=== PATIENT | female | born 1980 | race Caucasian/White ===

== ENCOUNTER 2017-05-29 16:28 | Emergency (ER) | payer OTHER ==
[~2017-05-29] VITALS: Ht 160 cm; Wt 78.1 kg
--- NOTE | 2017-05-29 16:50 | NUR ---
DIONTE AMBULATED TO [facility]
[2017-05-29 16:51] VITALS: BP 129/87
--- NOTE | 2017-05-29 16:55 | NUR ---
36F BIB SELF C/O VAGINAL ITCHING AND SWELLING X 3 WEEKS; PT STATES WAS DX WITH CHLAMYDIA BY OUTSIDE LAB ON 05/16/17, TREATED WITH METRONIDAZOLE, BUT CONTINUES TO HAVE IRRITATION; PT STATES WAS INSTRUCTED TO SEE PCP FOR MEDICATION, BUT UNABLE TO GET APPOINTMENT FOR WEEKS. PT STATES NO VAGINAL BLEEDING, NO VAGINAL DISCHARGE, NO ODOR, AND NO URINARY PAIN, RETENTION, OR BURNING AT THIS TIME; PT AA&OX4 WITH EVEN AND STEADY GAIT; PT STATES NO PAIN, NO N/V/D AT THIS TIME; BL LUNG SOUNDS CLEAR, RR EVEN/UNLABORED; PT RESTING IN OF, POSITIONED FOR COMFORT; ER MD MADE AWARE OF STATUS. WILL CONTINUE TO MONITOR.
[2017-05-29 17:30] VITALS: BP 126/84
--- NOTE | 2017-05-29 17:30 | NUR ---
Patient discharged with v/s stable. Written and verbal after care instructions given and explained. Patient alert, oriented and verbalized understanding of instructions. Ambulatory with steady gait. All questions addressed prior to discharge. ID band removed. Patient advised to follow up with PMD. Rx of ZOFRAN ODT 4MG & AZITHROMYCIN 500MG TAB given. Patient educated on indication of medication including possible reaction and side effects. Opportunity to ask questions provided and answered.
== END 2017-05-29 17:30 | disposition home or self-care (01) ==
LOC: MED 16:28
DX: A74.9 Chlamydial infection, unspecified (principal); Z88.1 Allergy status to other antibiotic agents; Z88.5 Allergy status to narcotic agent
CPT/HCPCS: 99283

== ENCOUNTER 2017-06-16 19:24 | Emergency (ER) | payer OTHER ==
[~2017-06-16] VITALS: Ht 160 cm; Wt 77.1 kg
[2017-06-16 19:31] VITALS: BP 133/81
--- NOTE | 2017-06-16 19:36 | NUR ---
PT TAKEN TO BED 10
--- NOTE | 2017-06-16 19:40 | NUR ---
36/F CAME IN W C/O 11/16 SUPRAPUBIC PAIN, ACUTE ONSET X 2 DAYS. PT REPORTS CLEAR VAGINAL DISCHARGE, NO ODOR REPORTED. PT REPORTS HX OF CHLAMYDIA X 2 WEEKS AGO AND WAS TREATED, STATES " I FINISHED ALL OF IT". DENIES HEMATURIA/DYURIA, DENIES FEVER/CHILLS, N/V/D. DENIES OTHER PMH/RX/OTC
[2017-06-16] MEDS ORDERED: LORATADINE 10 MG TAB PO ONE (21:15)
[2017-06-16] MEDS ORDERED: methylPREDNISolone SS 125 MG in WATER STERILE 2 ML IM ONE (21:15)
[2017-06-16] MEDS ORDERED: AZITHROMYCIN 250 MG TAB PO ONE (21:15)
[2017-06-16] MEDS ORDERED: cefTRIAXone 250 MG in LIDOCAINE MPF 1% - **ER/OR** 0.9 ML IM ONE (21:15)
[2017-06-16] MEDS ORDERED: methylPREDNISolone SS 125 MG/2 ML VIAL ONE (21:24)
--- NOTE | 2017-06-16 21:50 | NUR ---
Patient discharged with v/s stable. Written and verbal after care instructions given and explained. Patient verbalized understanding. Ambulatory with steady gait. All questions addressed prior to discharge. Advised to follow up with PMD.
[2017-06-16 21:56] VITALS: BP 127/88
[2017-06-16 22:32] LABS: APPEARANCE,URINE CLEAR (CLEAR); BILIRUBIN,URINE NEGATIVE (NEGATIVE); BLOOD, URINE TRACE-I (NEGATIVE); COLOR,URINE YELLOW (YELLOW); LEUKOCYTE ESTERASE ,URINE NEGATIVE (NEGATIVE); NITRITE, URINE NEGATIVE (NEGATIVE); PH,URINE 7.5 (5.0-9.0); UGLUCOSE NEGATIVE (NEGATIVE)
[2017-06-16 22:52] LABS: RBC,URINE 0-5 (RARE) /HPF (0-5); WBC,URINE 0-5 (RARE) /HPF (0-5)
[2017-06-19 09:13] LABS: CHLAMYDIA TRACHOMATIS AMP DNA Negative (Negative)
== END 2017-06-16 21:50 | disposition home or self-care (01) ==
LOC: MED 19:24
DX: N34.2 Other urethritis (principal); F41.9 Anxiety disorder, unspecified; Z88.1 Allergy status to other antibiotic agents; Z88.5 Allergy status to narcotic agent
CPT/HCPCS: 36415; 81001; 81025; 96372; 99284; J0696; J2001; J2930; 87491

== ENCOUNTER 2017-07-03 19:11 | Emergency (ER) | payer OTHER ==
[~2017-07-03] VITALS: Ht 160 cm; Wt 77.1 kg
[2017-07-03 19:34] VITALS: BP 134/90
--- NOTE | 2017-07-03 19:39 | NUR ---
TO LOBBY A/W BED, STABLE,[place], ERMD NOTED
--- NOTE | 2017-07-03 20:05 | NUR ---
PATIENT AMBULATED TO ER BED 2
--- NOTE | 2017-07-03 20:15 | NUR ---
PATIENT PRESENTS TO ED WITH VAG PAIN WITH ITCHINESS, LEFT FLANK, PELVIC PAIN FOR 3 DAYS.DENIES N/V/D; SKIN IS PINK/WARM/DRY; AAOX4 WITH EVEN AND STEADY GAIT; LUNGS CLEAR BL; HR EVEN AND REGULAR; PT DENIES ANY FEVER, CP, SOB, OR COUGH AT THIS TIME; PATIENT STATES PAIN OF 10/10 AT THIS TIME; VSS; PATIENT POSITIONED FOR COMFORT; HOB ELEVATED; BEDRAILS UP X2; BED DOWN. ER MD MADE AWARE OF PT STATUS.
--- NOTE | 2017-07-03 20:46 | NUR ---
Patient being evaluated by physician at bedside.
--- NOTE | 2017-07-03 21:44 | NUR ---
VAGINAL exam performed by with DR DOMINGUEZ at bedside for entire examination. Patient tolerated procedure WELL. Patient assisted to position of comfort after examination. WET MOUNT AND CULTURES COLLECTED BY ER MD AT BEDSIDE.
[2017-07-03] MEDS ORDERED: NACL 0.9% 1,000 ML IV ONE (22:55)
[2017-07-03 22:57] VITALS: BP 115/90
--- NOTE | 2017-07-03 22:57 | NUR ---
Patient discharged with v/s stable. Written and verbal after care instructions given and explained. Patient alert, oriented and verbalized understanding of instructions. Ambulatory with steady gait. All questions addressed prior to discharge. ID band removed. Patient advised to follow up with PMD. Rx of DOXYCYCLINE 100MG given. Patient educated on indication of medication including possible reaction and side effects. Opportunity to ask questions provided and answered.
== END 2017-07-03 22:57 | disposition home or self-care (01) ==
LOC: MED 19:11
DX: N76.0 Acute vaginitis (principal); Z88.1 Allergy status to other antibiotic agents; Z88.5 Allergy status to narcotic agent
CPT/HCPCS: 36415; 87070; 87210; 99284